=== PATIENT | male | born 1945 | race Caucasian/White ===

== ENCOUNTER 2022-05-18 16:15 | Outpatient (CLI) | payer MEDICARE | END 2022-05-18 16:16 | disposition home or self-care (01) | LOC: LAB.N 16:15 | PROVIDERS: ATTEND Physician Assistant Medical | DX: R33.9 Retention of urine, unspecified (principal) | CPT/HCPCS: 87086 ==

== ENCOUNTER 2022-05-31 16:54 | Emergency (ER) | payer MEDICARE ==
--- NOTE | 2022-05-31 17:17 | ED Physician Documentation ---
PD HPI MALE - Stated complaint Stated Complaint: MALE - Chief complaint Chief Complaint: Abd Pain - History obtained from History obtained from: Patient - Additional information Additional information: 76-year-old gentleman diagnosed with BPH about 5 years ago by urologist in [facility]. Was recommended to have a TURP at that time. Subsequently developed acute urinary retention about 2 weeks ago and had an indwelling Mario for approximately 11 days. Had removed a few days ago and today cannot urinate again. PD PAST MEDICAL HISTORY - Present Medications Home Medications: Ambulatory Orders Medication Instructions Recorded Confirmed Apixaban [Eliquis] 5 mg PO DAILY 05/31/22 05/31/22 Metoprolol Succinate [Toprol Xl] 50 mg PO DAILY 05/31/22 05/31/22 Tamsulosin [Flomax] 0.4 mg PO DAILY 05/31/22 05/31/22 - Allergies Allergies/Adverse Reactions: Allergies Allergy/AdvReac Type Severity Reaction Status Date / Time iodine Allergy Anaphylaxis Verified 05/31/22 17:02 PD ED PE NORMAL - Vitals Vital signs reviewed: Yes - General General: Alert and oriented X 3, No acute distress - Abdomen Abdomen: Normal bowel sounds, Soft, Other (Distended palpable bladder with suprapubic tenderness) - Neuro Neuro: Alert and oriented X 3, Normal speech - Psych Psych: Normal mood, Normal affect Results - Vitals Vitals: Vital Signs - 24 hr 05/31/22 16:58 Temperature 37.1 C Heart Rate 126 H Respiratory 18 Rate Blood Pressure 133/90 H O2 Saturation 16 L Oxygen O2 Source Room air PD Medical Decision Making - ED course ED course: A Mario was placed with about 2 L out. Nonbloody. He felt better. Departure - Departure Disposition: 01 Home, Self Care Clinical Impression: Urinary retention Condition: Good Record reviewed to determine appropriate education?: Yes Instructions: ED Catheter Care Mario, ED Retention Urinary Male Comments: As discussed, at this point it is looking more and more likely that you will probably need urologic intervention. Such as a TURP procedure. Follow-up with the urologist, next available appointment. The closest to you is in [place]. The phone number is [phone]. Continue Flomax.
[2022-05-31 17:58] VITALS: BP 143/76
== END 2022-05-31 17:59 | disposition home or self-care (01) ==
LOC: ED 16:54
DX: R33.9 Retention of urine, unspecified (principal)
CPT/HCPCS: 51702; 99283; 99284

== ENCOUNTER 2023-01-26 21:15 | Emergency (ER) | payer MEDICARE ==
[2023-01-26 21:59] VITALS: BP 125/66; O2SAT 96
[2023-01-26] MEDS ORDERED: TETANUS/DIPHTHERIA/PERTUSSIS 0.5 ML SYRINGE IM ONE (23:56)
--- NOTE | 2023-01-27 00:14 | ED Physician Documentation ---
PD HPI UPPER EXT INJURY - Stated complaint Stated Complaint: L FINGER LAC - Chief complaint Chief Complaint: Laceration - History obtained from History obtained from: Patient - Additonal information Additional information: Patient is a 77-year-old male presenting for evaluation of left index finger lac eration that occurred just prior to arrival when he was using an X-Acto knife to cut a piece of wallboard. He is on Eliquis for history of A-fib. He is unsure of his last tetanus. Review of Systems Skin: reports: Laceration (s) PD PAST MEDICAL HISTORY - Past Medical History : Retention - Present Medications Home Medications: Ambulatory Orders Medication Instructions Recorded Confirmed Apixaban [Eliquis] 5 mg PO BID 05/31/22 01/26/23 Metoprolol Succinate [Toprol Xl] 50 mg PO BID 05/31/22 01/26/23 Tamsulosin [Flomax] 0.4 mg PO BID 05/31/22 01/26/23 lisinopriL [Zestril] 1 tab PO DAILY 01/26/23 01/26/23 - Allergies Allergies/Adverse Reactions: Allergies Allergy/AdvReac Type Severity Reaction Status Date / Time iodine Allergy Anaphylaxis Verified 05/31/22 17:02 - Social History Does the pt smoke?: No Smoking Status: Never smoker PD ED PE NORMAL - General General: Alert and oriented X 3, No acute distress, Well developed/nourished - HEENT HEENT: Atraumatic - Cardiac Cardiac: Strong equal pulses - Extremities Extremities: Other (Avulsion to lateral left index finger, 1 cm long over distal portion, normal range of motion at all joints, no nailbed involvement) PD ED PE EXPANDED - Extremities REAL UE/Hands Visual: 1 - deformity (avulsion) Results - Vitals Vitals: Vital Signs - 24 hr 01/26/23 21:45 Temperature 36.7 C Heart Rate 73 Respiratory 17 Rate Blood Pressure 125/66 O2 Saturation 96 Oxygen O2 Source Room air Procedures - Laceration (location) L index Length in cm: 1 Wound type: Irregular (Avulsion), Clean Neurovascular status: Sensory intact, Motor intact, Vascular intact Tendon involvement: Tendon intact Wound preparation: Hibiclens, Irrigated copiously NS Skin layer closure: Dermabond Other: Patient tolerated well, No complications, Neurovascular intact, Dressing applied, Tetanus booster given PD Medical Decision Making - ED course ED course: Patient with an avulsion to his left index finger after cutting it with an X- Acto knife on accident tonight. He is on Eliquis and has had trouble controlling the bleeding. On exam there is no nailbed involvement. No signs of tendon injury. Normal range of motion. Wound is not amenable to sutures as there is a chunk of skin missing. Therefore after placing a ring tourniquet I applied several layers of Dermabond which achieved hemostasis. I then remove the ring tourniquet. Dressing was applied. Patient was given a tetanus booster. Patient counseled on continued wound care as well as concerning symptoms to return for. Departure - Departure Disposition: 01 Home, Self Care Clinical Impression: Laceration of left index finger Condition: Stable Instructions: ED Laceration Ext Skin Glue Comments: You were evaluated for a cut to your left index finger. This area was not amenable to stitches as there was a chunk of skin missing so we used Dermabond which is a skin adhesive to cover the wound and to help with clotting. We have also applied a dressing tonight. Please keep this dressing on for the next 24 hours. You can remove the dressing after that but I would take caution with the finger as you could cause it to rebleed if you strike it against anything and open the wound back up. Return to the emergency department with any worsening symptoms. You also received a tetanus booster this evening. Forms: PCP List Discharge Date/Time: 01/27/23 00:34
== END 2023-01-27 00:34 | disposition home or self-care (01) ==
LOC: ED 21:15
DX: S61.211A Laceration without foreign body of left index finger without damage to nail, initial encounter (principal); W26.0XXA Contact with knife, initial encounter; I48.91 Unspecified atrial fibrillation; Z79.01 Long term (current) use of anticoagulants
CPT/HCPCS: 12001; 90471; 99282